=== PATIENT | female | born 1980 | race Hispanic/Latino ===

== ENCOUNTER 2018-06-03 01:43 | Day surgery (SDC) | payer OTHER ==
[2018-06-03 02:40] VITALS: BP 109/62; BMI 32.5
[2018-06-03 03:05] LABS: Amnisure Internal Control QC ACCEPTABLE (ACCEPTABLE); Amnisure Test No Membranes Rupture (No Rupture)
[2018-06-03] MEDS ORDERED: Betamet Acet/Betamet Na Ph 30 MG/5 ML VIAL ONE (03:33)
--- NOTE | 2018-06-03 03:38 | PDOC.EVN ---
Event Note - Event Note Event Note: S: Triaged patient per hospital policy. Patient is a 37 yo at 35.6 wk who presented to [place] [facility] with vaginal fluid leaking following intercourse. Denies contractions. She was brought to [facility] for monitoring. O: SVE: /-2 A&P: Plan of care discussed with Dr. Rhodes and Dr. Oscar. Given advanced degree of cervical dilation, will give betamethasone 12 mg IM before d/c. Instructed patient to return to L&D on 06/04/18 before 9 am for second dose of steroids. Given return to care precautions. <Joe Helton - Last Filed: 06/03/18 03:34> Attending Addendum - Attending Addendum Date/Time: 06/03/18 0406 I personally evaluated the patient and discussed the management with Dr. Helton. Discussed steroids with Dr. Rhodes. I agree with the History, Examination, Assessment and Plan documented above. <Remi Oscar - Last Filed: 06/03/18 04:07>
[2018-06-03] MEDS ORDERED: Betamet Acet/Betamet Na Ph 30 MG/5 ML VIAL IM SCH (03:45)
== END 2018-06-03 03:47 | disposition home or self-care (01) ==
LOC: L&D/OP 01:43
PROVIDERS: ATTEND Family Medicine
DX: O99.89 Other specified diseases and conditions complicating pregnancy, childbirth and the puerperium (principal); N89.8 Other specified noninflammatory disorders of vagina; Z3A.35 35 weeks gestation of pregnancy; Z79.899 Other long term (current) drug therapy
CPT/HCPCS: 84112; 96372; 99284; J0702

== ENCOUNTER 2018-06-04 09:05 | Day surgery (SDC) | payer OTHER ==
[2018-06-04 09:08] VITALS: BMI 32.5
--- NOTE | 2018-06-04 09:26 | PDOC.EVN ---
Event Note - Event Note Event Note: Returned to L&D for second dose of steroids. Denies cramping or contractions. FHT: 135, moderate variability, positive accel, no decel, reactive NST A&P: given 2nd dose of steroids. f/u with PCP per routine schedule. given RTC precautions. Cervix was not checked since no signs of labor.
[2018-06-04] MEDS ORDERED: Betamet Acet/Betamet Na Ph 30 MG/5 ML VIAL IM SCH (09:30)
== END 2018-06-04 09:35 | disposition home health service (06) ==
LOC: L&D/OP 09:05
PROVIDERS: ATTEND Obstetrics & Gynecology
DX: Z29.8 Encounter for other specified prophylactic measures (principal); Z79.899 Other long term (current) drug therapy
CPT/HCPCS: 96372; 99283

== ENCOUNTER 2018-06-22 09:15 | Inpatient (IN) | payer MEDICAID, OTHER, SELFPAY ==
[~2018-06-22 09:15] MED LIST: Bupivacaine 0.25% HCL 30 ML VIAL ONE
[2018-06-22] MEDS ORDERED: Ibuprofen 800 MG TAB PO PRN (10:18)
[2018-06-22] MEDS ORDERED: Methylergonovine 0.2 MG/ML VIAL IM PRN (10:18)
[2018-06-22] MEDS ORDERED: HYDROcodone/Acetaminophen 5/325 mg Tablet PO PRN ×3 (10:18→19:20)
[2018-06-22] MEDS ORDERED: Carboprost 250 MCG/ML AMP IM PRN (10:18)
[2018-06-22] MEDS ORDERED: Misoprostol 200 MCG TAB PR PRN (10:18)
[2018-06-22] MEDS ORDERED: Lidocaine 1% (PF) 30 ML VIAL SC PRN (10:18)
[2018-06-22] MEDS ORDERED: Ondansetron PF 4 MG/2 ML Vial IVP PRN ×3 (10:18→19:20)
[2018-06-22] MEDS ORDERED: Diphenoxylate HCl/Atropine Tablet PO PRN (10:18)
[2018-06-22] MEDS ORDERED: Butorphanol Tartrate 1 MG/ML VIAL SLOW IVP PRN (10:18)
[2018-06-22] MEDS ORDERED: Penicillin G Potassium 5 MILL.UNITS VIAL ONE (10:19)
[2018-06-22] MEDS: Lactated Ringer's 1,000 ML IV SCH ×2 (10:30→21:48)
[2018-06-22] MEDS ORDERED: NS w/ Oxytocin 10 units 500 ML IV SCH ×2 (10:30)
[2018-06-22] MEDS ORDERED: Penicillin G Potassium 5 MILL.UNITS in Sodium Chloride 0.9% 100 ML IVPB SCH (10:30)
[2018-06-22 10:55] VITALS: BMI 32.9
[2018-06-22 10:57] LABS: Hemoglobin 12.8 g/dL (12.0-16.0); Mean Corpuscular HGB CONC 33.3 g/dL (32.0-36.0); Mean Corpuscular Hemoglobin 29.4 pg (27.0-31.0); Mean Corpuscular Volume 88.4 fL (78.0-98.0); Mean Platelet Volume 9.9 fL (7.4-10.4); Platelet Count 108 thou/uL (130-400); RBC Distribution Width 13.7 % (11.5-14.5); Red Blood Cell (RBC) Count 4.33 mill/uL (4.20-5.40); White Blood Cell (WBC) Count 7.1 thou/uL (4.8-10.8)
[2018-06-22] MEDS ORDERED: Fentanyl 4 mcg/Bup 0.1% Cadd 100 ML ONE (11:07)
[2018-06-22 11:23] LABS: Syphilis Antibody Nonreactive (Nonreactive); Syphilis Antibody Index 0.02 S/CO (<1.00 Non-Reactive)
[2018-06-22 11:24] LABS: HBSAg Index 0.23 S/CO (0-0.99); Hep B Surf Ag Non-Reactive S/CO (NonReactive)
[2018-06-22] MEDS ORDERED: Lactated Ringer's 500 ML IV PRN (11:51)
[2018-06-22] MEDS ORDERED: Naloxone HCl 0.4 mg/ml Vial IVP PRN ×2 (11:51)
[2018-06-22] MEDS ORDERED: Acetaminophen 325 MG TAB PO PRN (11:51)
[2018-06-22] MEDS ORDERED: diphenhydrAMINE 50 MG/ML VIAL IVP PRN (11:51)
[2018-06-22] MEDS ORDERED: Eucerin (Mineral Oil/Petrolatum,White) 30 gm Jar TOP PRN (11:51)
[2018-06-22] MEDS ORDERED: ePHEDrine/0.9% NaCl/PF SYRINGE 50 mg/10 ml SLOW IVP PRN (11:51)
[2018-06-22] MEDS ORDERED: Promethazine HCl 25 MG/ML VIAL IM PRN (11:51)
[2018-06-22] MEDS ORDERED: Communication Order-Pharmacy FS SCH (12:00)
[2018-06-22] MEDS ORDERED: Fentanyl 4 mcg/Bupivacaine 0.1% Cassette 100 ML EPIDURAL SCH (12:00)
[2018-06-22] MEDS: Penicillin G 2.5 MILL.units 2.5 MILL.UNITS in Premix Bag 1 BAG IVPB SCH ×2 (14:00→21:48)
[2018-06-22] MEDS: NS / Oxytocin 40 units/1000ml 1,000 ML IV PRN ×2 (16:48→18:09)
[2018-06-22] MEDS ORDERED: Bisacodyl 10 MG SUPP PR PRN (19:20)
[2018-06-22] MEDS ORDERED: diphenhydrAMINE 25 MG CAP PO PRN (19:20)
[2018-06-22] MEDS ORDERED: NS / Oxytocin 40 units/1000ml 1,000 ML IV SCH (19:20)
[2018-06-22] MEDS ORDERED: Milk Of Magnesia 30 ML UDCUP PO PRN (19:20)
[2018-06-22] MEDS ORDERED: Lanolin Ointment 7 GM TUBE TOP PRN (19:20)
[2018-06-22] MEDS: Docusate Calcium (SURFAK) 240 MG CAP PO SCH (22:16)
[2018-06-22] MEDS: Ibuprofen 800 MG TAB PO SCH (22:16)
[2018-06-23] MEDS: Ibuprofen 800 MG TAB PO SCH ×2 (05:53→14:32)
[2018-06-23 06:29] LABS: Hemoglobin 11.1 g/dL (12.0-16.0); Mean Corpuscular HGB CONC 32.8 g/dL (32.0-36.0); Mean Corpuscular Hemoglobin 29.8 pg (27.0-31.0); Mean Corpuscular Volume 91.1 fL (78.0-98.0); Mean Platelet Volume 9.7 fL (7.4-10.4); Platelet Count 98 thou/uL (130-400); RBC Distribution Width 13.8 % (11.5-14.5); Red Blood Cell (RBC) Count 3.73 mill/uL (4.20-5.40); White Blood Cell (WBC) Count 8.9 thou/uL (4.8-10.8)
[2018-06-23] MEDS ORDERED: Ferrous Sulfate 325 MG TAB PO SCH (08:00)
[2018-06-23] MEDS ORDERED: Prenatal Vitamin 1 TAB PO SCH (09:00)
[2018-06-23] MEDS: Docusate Calcium (SURFAK) 240 MG CAP PO SCH (09:22)
[2018-06-23 17:59] VITALS: BP 105/57; TEMP 97.1
== END 2018-06-23 19:40 | disposition home or self-care (01) | DRG 807 ==
LOC: L&D 09:43 → 3SW 20:29
PROVIDERS: ADMIT Family Medicine; ATTEND Family Medicine
PROC: 10E0XZZ Delivery of Products of Conception, External Approach (ICD-10-PCS; principal; 2018-06-22)
DX: O99.824 Streptococcus B carrier state complicating childbirth (principal); Z37.0 Single live birth; Z3A.38 38 weeks gestation of pregnancy
CPT/HCPCS: 36415; 51702; 85027; 86780; 86850; 86900; 86901; 87340; J2001; J2540; S0020